=== PATIENT | male | born 2000 | race Caucasian/White ===

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

== ENCOUNTER → 2020-08-19 | Outpatient (CLI) | payer OTHER ==
--- NOTE | 2020-08-20 02:52 | MR ---
EXAMINATION TYPE: MR shoulder RT wo con DATE OF EXAM: 08/19/2020 COMPARISON: None HISTORY: Rt shoulder pain, injured 1 year ago. Multiplanar multiecho imaging of the right shoulder was performed without contrast. The supraspinatus tendon appears intact. The glenoid david appear intact. Subscapularis tendon is int act. The biceps tendon appears normal. There is no significant joint fluid. The AC joint is intact. There is no evidence of any significant subacromial impingement. There is 6 mm rounded area of fluid signal at the superior aspect of the humeral head could be degenerative cyst . There is irregular appearance of the cortex on the posterior lateral aspect of the humeral head. Th is could either sequela of an old bone bruise and cortical fracture. IMPRESSION: Irregular cortical surface of the posterior lateral humeral head could relate to an old bone bruise a nd fracture. No humeral neck fracture. This area measures 1.6 cm in length. No evidence of a rotator cuff tear.
== END | disposition home or self-care (01) ==
LOC: RADMRIMAIN 18:59
PROVIDERS: ATTEND Orthopaedic Surgery
DX: M25.511 Pain in right shoulder (principal)